=== PATIENT | female | born 1960 | race Caucasian/White ===

== ENCOUNTER 2021-04-09 05:08 | Emergency (ER) | payer OTHER ==
[~2021-04-09] VITALS: Ht 160 cm; Wt 87.0 kg
[2021-04-09] MEDS ORDERED: ONDANSETRON HCL 4MG/2ML INJ IV STA (05:56)
[2021-04-09] MEDS ORDERED: FAMOTIDINE 20MG/2ML VIAL IV STA (05:56)
[2021-04-09] MEDS ORDERED: ACETAMINOPHEN 325MG TABLET PO ONE (06:00)
[2021-04-09] MEDS ORDERED: SODIUM CHLORIDE 0.9% 1,000 ML IV ONE ×2 (06:00→06:15)
[2021-04-09 06:27] LABS: HEMATOCRIT. 35.1 % (36.0-48.0); HEMOGLOBIN. 11.4 g/dL (12.0-16.0); MEAN CORPUSCULAR HEMOGLOBIN 25.9 pg (28.0-32.0); MEAN CORPUSCULAR VOLUME 79.5 fL (81.0-99.0); MEAN PLATELET VOLUME 7.2 fl (7.4-10.4); PLATELET 220 x1000/uL (130-400); RED BLOOD CELL COUNT 4.41 mill/uL (4.2-5.4); RED CELL DISTRIBUTION WIDTH 13.7 % (11.6-14.6)
[2021-04-09 06:34] LABS: CHLORIDE 106 mEq/L (98-107)
[2021-04-09 06:46] LABS: CLARITY URINE CLEAR (CLEAR); COLOR URINE YELLOW (YELLOW); KETONES URINE 1+ (NEGATIVE); LEUKOCYTE ESTERASE URINE 2+ (NEGATIVE); NITRITE URINE POSITIVE (NEGATIVE); OCCULT BLOOD URINE 1+ (NEGATIVE); PH URINE 6.5 (4.5-8.0); PROTEIN URINE NEGATIVE (NEGATIVE); SPECIFIC GRAVITY URINE 1.012 (1.005-1.030); UROBILINOGEN URINE 0.2 E.U./dL (0.2-1.0)
[2021-04-09] MEDS ORDERED: CEFTRIAXONE 1 G PREMIX 50 ML IV ONE (07:15)
[2021-04-09] MEDS ORDERED: TOPUD PO (07:16)
[2021-04-09] MEDS ORDERED: NITR100C PO (07:16)
[2021-04-09 08:43] LABS: PLATELET ESTIMATE NORMAL
[2021-04-09 09:13] VITALS: BP 98/56
== END 2021-04-09 09:21 | disposition home or self-care (01) ==
LOC: ER 05:08 → CANBEDREQ 08:19 → ER 09:21
DX: N39.0 Urinary tract infection, site not specified (principal); I49.9 Cardiac arrhythmia, unspecified; Z20.822 Contact with and (suspected) exposure to COVID-19
CPT/HCPCS: 36415; 71045; 80053; 81003; 83605; 83690; 84145; 85025; 87040; 87077; 87086; 87186; 87426; 93005; 96361; 96365; 96366; 96375; 99285; J0696; J2405; J3490; J7030

== ENCOUNTER 2021-04-09 21:54 | Emergency (ER) | payer OTHER ==
[~2021-04-09] VITALS: Ht 160 cm; Wt 66.4 kg
[~2021-04-09 21:54] MED LIST: NITR100C PO; TOPUD PO
[2021-04-09] MEDS ORDERED: VANCOMYCIN 1 G PREMIX 200 ML IV ONE (22:45)
[2021-04-09] MEDS ORDERED: SODIUM CHLORIDE 0.9% 1000ML BAG (SEPSIS BOLUS) IV ONE (22:45)
[2021-04-09] MEDS ORDERED: PIPERACILLIN/TAZ 3.375G PREMIX 50 ML IV ONE (22:45)
[2021-04-10 00:48] LABS: BASOPHILS % 0.5 % (0.0-2.0); HEMATOCRIT. 37.6 % (36.0-48.0); LYMPHOCYTES % 8.6 % (20.0-50.0); MEAN CORPUSCULAR HEMOGLOBIN 26.1 pg (28.0-32.0); MEAN CORPUSCULAR VOLUME 81.7 fL (81.0-99.0); MEAN PLATELET VOLUME 7.2 fl (7.4-10.4); MONOCYTES % 4.4 % (2.0-8.0); NEUTROPHILS % 86.5 % (40.0-76.0); PLATELET 241 x1000/uL (130-400); RED CELL DISTRIBUTION WIDTH 14.3 % (11.6-14.6)
[2021-04-10 00:53] LABS: CHLORIDE 107 mEq/L (98-107)
[2021-04-10] MEDS ORDERED: ONDANSETRON HCL 4MG/2ML INJ IV PRN (08:15)
[2021-04-10] MEDS ORDERED: ACETAMINOPHEN 325MG TABLET PO PRN (08:15)
[2021-04-10] MEDS ORDERED: CEFTRIAXONE 1 G PREMIX 50 ML IV SCH (08:30)
[2021-04-10 10:00] VITALS: BP 99/45
== END 2021-04-10 10:41 | disposition short-term general hospital (02) ==
LOC: ER 21:54 → CANBEDREQ 04-10 10:47
DX: N39.0 Urinary tract infection, site not specified (principal); R78.81 Bacteremia; N30.00 Acute cystitis without hematuria; E44.1 Mild protein-calorie malnutrition; R00.0 Tachycardia, unspecified; Z79.899 Other long term (current) drug therapy
CPT/HCPCS: 36415; 71045; 80053; 83605; 85025; 93005; 96365; 96366; 96368; 99291; J0696; J2543; J3370; J7030